=== PATIENT | female | born 1955 | race Caucasian/White ===

== ENCOUNTER 2016-10-13 16:09 | Emergency (ER) | payer OTHER ==
[~2016-10-13] VITALS: Wt 105.0 kg
[~2016-10-13 16:09] MED LIST: AFRIN NASAL; BACTDS PO; BENA10TA48 PO; GLIP5TAB13 PO; HYDR-3720 PO; METF500T4 PO; METR500T PO; NORC 5-325 PO; RANI150T5 PO
[2016-10-13] MEDS ORDERED: ONDANSETRON 4 MG INJ IV STA (19:33)
[2016-10-13] MEDS ORDERED: morphine 4 MG/ML VIAL IV STA (19:33)
[2016-10-13] MEDS ORDERED: SOD CHLORIDE 0.9% 1,000 ML IV STA (19:33)
--- NOTE | 2016-10-13 20:32 | ERD ---
ER Documentation Chief Complaint Date/Time DATE: 10/13/16 TIME: 20:29 Chief Complaint RIGHT FLANK PAIN RADIATING TO RIGHT SIDE ABD PAIN SINCE 0300. NAUSEA ONLY HPI 60-year-old woman presents with right lower abdominal and right flank pain since this morning with some nausea although she has had no vomiting or diarrhea. 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 She does have a history of multiple renal stones and did undergo shockwave lithotripsy on the right for a large stone a few months ago. She denies hematuria, no blood or mucus in her stools, no chest pain or shortness of breath, no headache or blurry vision, no fevers or chills, no recent antibiotic use or travel. Pain is been intermittent ROS All systems reviewed and are negative except as per history of present illness. Medications Home Meds Active Scripts Ondansetron Hcl* (Zofran*) 4 Mg Tablet, 4 MG PO Q8H Y for NAUSEA AND/OR VOMITING , #15 TAB Prov:SANDIP LIVINGSTON MD 10/13/16 Naproxen* (Naprosyn*) 500 Mg Tablet, 500 MG PO BID Y for PAIN AND/OR INFLAMMATION, #30 TAB Prov:SANDIP LIVINGSTON MD 10/13/16 Cephalexin* (Keflex*) 500 Mg Capsule, 500 MG PO TID for 5 Days, CAP Prov:SANDIP LIVINGSTON MD 10/13/16 Reported Medications Glipizide* (Glipizide*) Unknown Strength Tablet, PO AC BREAKFAST, TAB 11/11/15 Metformin* (Glucophage*) Unknown Strength Tab, PO BID, #30 TAB 11/11/15 Benazepril Hcl* (Benazepril Hcl*) 10 Mg Tablet, 10 MG PO DAILY, TAB PT REPORTED SIDE EFFECTS COUGH AND NAUSEA PT STOPPED TX 05/16/14 Discontinued Reported Medications Oxymetazoline Hcl* (Afrin Melber*) 1 Melber Melber, 2 SPRAY NASAL QID Y for NASAL CONGESTION, SPRAY TO EACH NOSTRIL 05/16/14 Ranitidine Hcl* (Ranitidine Hcl*) 150 Mg Tablet, 150 MG PO DAILY, TAB 05/16/14 Discontinued Scripts Sulfamethoxazole-Trimethoprim* (Bactrim* DS) 800-160 Mg Tab, 1 TAB PO BID for 10 Days, TAB Prov:MAY LEON. DO 11/11/15 Metronidazole* (Flagyl*) 500 Mg Tablet, 500 MG PO TID for 10 Days, TAB Prov:MAY LEON. DO 11/11/15 Hydrocodone Bit-Acetaminophen* ([place]*) 7.5-325 Tablet, 2 TAB PO Q4H Y for PAIN , #30 TAB Prov:KAUR LEONOLOLayne A. DO 11/11/15 Hydrocodone Bit-Acetaminophen* ([place]*) 5-325 Tablet, 1 TAB PO Q4H Y for PAIN LEVEL 6-10, #20 TAB Prov:HEATHER GIBBONS MD 05/18/14 Allergies Allergies: Coded Allergies: Iodinated Contrast Media - Oral and (Verified Allergy, Unknown, 10/13/16) ciprofloxacin (Verified Allergy, Unknown, 10/13/16) HIVES PMhx/Soc Hypertension, diabetes mellitus, gastritis, obesity, history of multiple renal stones and diverticulitis History of Surgery: Yes (KIDNEY STONES) Anesthesia Reaction: No Hx Neurological Disorder: No Hx Respiratory Disorders: No Hx Cardiac Disorders: Yes (HTN) Hx Psychiatric Problems: No Hx Miscellaneous Medical Probl: Yes (DM II) Hx Alcohol Use: No Hx Substance Use: No Hx Tobacco Use: Yes Smoking Status: Former smoker FmHx Family History: No diabetes Physical Exam Vitals Vital Signs Date Time Temp Pulse Resp B/P Pulse Ox O2 Delivery O2 Flow Rate FiO2 10/13/16 22:09 97.7 60 18 186/95 100 Room Air 10/13/16 16:40 98.5 64 20 193/102 96 Physical Exam GENERAL: Well-developed, well-nourished, well-hydrated, in no apparent distress , looks nontoxic in appearance HEENT: Moist mucous membranes, pink conjunctiva, no cervical spine tenderness or step-off deformities, no goiter, no jaundice or icterus, extraocular movements intact without pain. No submandibular induration, and no pharyngeal erythema NEURO: Alert and oriented 3, cranial nerves II through XII intact bilaterally, pupils equal round reactive to light, no focal deficits or facial asymmetry, sensation intact distally Strength 5/5 in upper and lower extremities bilaterally CARDIAC: Regular rate and rhythm, no murmurs rubs or gallops LUNGS: Clear bilaterally no wheezing crackles or stridor ABDOMEN: Soft nontender, no guarding, no rigidity, no rebound, no psoas sign no obturator sign. Normoactive bowel sounds SKIN: Warm and dry to touch, no abrasions, contusions, or hematomas, no lacerations, no ecchymosis, no target lesions, and without ulcers EXTREMITIES: No clubbing cyanosis or edema, calves are bilaterally symmetrical, no Homans sign, no popliteal cord sign. Distal pulses equal and bilateral PSYCH: Normal affect without agitation or irritability Result Diagram: 10/13/16210410/13/162104 Results 24 hrs Laboratory Tests Test 10/13/16 20:00 10/13/16 21:05 Urine Bacteria RARE Urine Bilirubin NEGATIVE Urine Clarity CLEAR Urine Color YELLOW Urine Glucose NEGATIVE% Urine Hemoglobin 3+ Urine Ketones TRACE Urine Leukocyte Esterase NEGATIVE Urine Microscopic RBC 25-50/HPF Urine Microscopic WBC NONE SEEN/HPF Urine Mucus FEW Urine Nitrite NEGATIVE Urine Specific [place] >=1.030 Urine Squamous Epithelial Cells RARE Urine Total Protein 2+ Urine Urobilinogen 0.2 E.U./dL Urine pH 5.0 Alanine Aminotransferase (ALT/SGPT) 161IU/L Albumin 4.0g/dl Albumin/Globulin Ratio 1.11 Alkaline Phosphatase 79IU/L Anion Gap 17 Aspartate Amino Transf (AST/SGOT) 97IU/L Basophils # 0.010^3/ul Basophils % 0.4% Blood Morphology Comment Blood Urea Nitrogen 10mg/dl Calcium Level 9.4mg/dl Carbon Dioxide Level 29mmol/L Chloride Level 103mmol/L Creatinine 0.63mg/dl Direct Bilirubin 0.00mg/dl Eosinophils # 0.110^3/ul Eosinophils % 1.7% Globulin 3.60g/dl Glucose Level 142mg/dl Hematocrit 43.6% Hemoglobin 14.9g/dl Indirect Bilirubin 0.6mg/dl Lipase 109U/L Lymphocytes # 3.010^3/ul Lymphocytes % 42.2% Mean Corpuscular Hemoglobin 36.7pg Mean Corpuscular Hemoglobin Concent 34.3g/dl Mean Corpuscular Volume 107.2fl Mean Platelet Volume 8.2fl Monocytes # 0.510^3/ul Monocytes % 7.7% Neutrophils # 3.410^3/ul Neutrophils % 48.0% Nucleated Red Blood Cells # 0.010^3/ul Nucleated Red Blood Cells % 0.0/100WBC Platelet Count 55594^3/UL Potassium Level 4.3mmol/L Red Blood Count 4.0710^6/ul Red Cell Distribution Width 13.4% Sodium Level 145mmol/L Total Bilirubin 0.6mg/dl Total Protein 7.6g/dl White Blood Count 7.110^3/ul Current Medications Medications (Trade) Dose Ordered Sig/Luly Route PRN Reason Start Time Stop Time Status Last Admin Dose Admin Sodium Chloride (NS) 1,000 ml @ 1,000 mls/hr Q1H STAT IV 10/13/16 19:33 10/13/16 20:32 DC 10/13/16 20:18 Morphine Sulfate (morphine) 4 mg ONCE STAT IV 10/13/16 19:33 10/13/16 19:34 DC 10/13/16 20:18 Ondansetron HCl (Zofran Inj) 4 mg ONCE STAT IV 10/13/16 19:33 10/13/16 19:34 DC 10/13/16 20:18 Procedures/MDM IV line was established patient was placed on monitor tech rhythm strip revealed a sinus rhythm at about 70 bpm with upright P and T waves. Patient was afebrile. I administered 1 L normal saline intravenously, morphine 4 mg IV, and Zofran 4 mg IV with good effect. CT scan of the abdomen and pelvis was performed, given the patient's symptoms. There was no acute inflammatory or infectious pathology noted, vascular structures were unremarkable. Please refer radiologist's dictation for full report. CBC and electrolytes were normal, liver function tests were normal, urine analysis was negative for infection. Differential diagnoses considered, included but not limited to acute coronary syndrome, pulmonary embolism, aortic dissection, abdominal aortic aneurysm, sepsis, stroke, meningitis, encephalitis, pneumonia, appendicitis, cholecystitis , bowel obstruction, pyelonephritis, nephrolithiasis, cystitis, as well as metabolic, hematologic, and electrolyte abnormalities. As well as abscess, cellulitis, fractures, and dislocations. Patient feels much better at this time, and vital signs are normal, symptoms have improved. I did give strict instructions to return to the ED if symptoms continue or worsen, patient will otherwise follow-up with primary care physician. Patient understood instructions and agreed to plan. Departure Diagnosis: Primary Impression: Kidney stone Condition: Good SANDIP LIVINGSTON MD Oct 13, 2016 20:31
[2016-10-13 20:39] LABS: ADD UMIC YES; URINE BILIRUBIN (Dip) NEGATIVE (NEGATIVE); URINE BLOOD (Dip) 3+ (NEGATIVE); URINE COLOR YELLOW (YELLOW); URINE GLUCOSE (Dip) NEGATIVE (NEGATIVE); URINE KETONES (Dip) TRACE (NEGATIVE); URINE LEUKOCYTE ESTERASE (Dip) NEGATIVE (NEGATIVE); URINE NITRITE (Dip) NEGATIVE (NEGATIVE); URINE TOTAL PROTEIN (Dip) 2+ (NEGATIVE); URINE UROBILINOGEN (Dip) 0.2 E.U./dL (0.1-1.0)
--- NOTE | 2016-10-13 20:57 | RADRPT ---
PROCEDURE: CT Abdomen and Pelvis without contrast CLINICAL INDICATION: Abdominal pain, right flank pain, history of kidney stones TECHNIQUE: Transaxial images were obtained through the abdomen and pelvis on a multi-slice scanner without the intravenous contrast administration. No oral contrast had previously been given. Sagit juju and coronal re-formations were subsequently reconstructed. One or more of the following dose reduction techniques were used: - Automated exposure control. - Adjustment of the mA and/or kV according to patient size. - Use of iterative reconstruction technique. Radiation dose: CTDIvol = 22.81 mGy; DLP = 1274.33 mGy-cm. COMPARISON: 11/11/2015 FINDINGS: Lung bases: Minimal discoid atelectasis is seen at the lung bases. Liver: The liver is mildly enlarged but no focal lesion identified. Gallbladder: The wall is not thickened. No radiopaque stones are identified. Bile ducts: The intra and extrahepatic bile ducts are normal in caliber. Pancreas: Appears normal with no mass or inflammation evident. Spleen: Normal in size with no focal lesion. Adrenals: Normal with no mass identified. Kidneys, ureters and bladder: The right kidney is somewhat smaller than the left and is slightly lob ulated in contour compatible with renal scarring. There is no hydronephrosis but multiple nephrolit hs are identified with the largest measuring 5 mm in diameter. The left kidney is normal in size. No mass or hydronephrosis is evident. Multiple nephroliths are identified but the largest measuring approximately 8 mm in diameter. The ureters are not dilated, but a 5.6 x 4.0 mm distal left uretero lith is seen at the left ureterovesicular junction. The bladder is suboptimally distended. Reproductive organs: The uterus is midline. There is a 9.4 mm cluster of calcifications in the left adnexal region possibly representing a dermoid. Stomach and bowel: The stomach appears unremarkable. There is no evidence of bowel obstruction or i nflammation. Multiple diverticuli are seen within the distal descending and sigmoid colon. Appendix: The vermiform appendix is not discretely identified. Peritoneum: No free intraperitoneal fluid or air is identified. Aorta: There is atherosclerotic vascular calcification but no abdominal aortic aneurysm is evident. IVC: Unremarkable. Lymph nodes: No pathologically enlarged nodes are identified. Osseous structures: Mild degenerative spine changes are again noted. There is again minimal depressi on of the anterior superior endplate of L1, unchanged. IMPRESSION: 1. The right kidney is somewhat smaller than the left and demonstrates mild cortical scarring. Mul tiple bilateral nonobstructing nephroliths are again evident but there is no evidence of urinary out flow obstruction. There is now a 5.6 x 4.0 mm distal left ureterolith at the left ureterovesicular junction which was not evident previously. The bladder is otherwise suboptimally distended but unrem arkable. 2. Persistent diverticulosis of the distal colon without evidence of bowel obstruction or inflammat ion. The vermiform appendix is not discretely identified. 3. A 9 mm focus of punctate clustered calcifications is again seen in the left adnexal region which may represent a small dermoid. 4. Persistent hepatomegaly with no focal lesion. 5. Minimal depression of the anterior superior endplate of L1 which may represent a mild compressio n fracture deformity, unchanged. Physician Estrella Date Time Electronically viewed and signed by Physician Estrella on 10/13/2016 20:57 RH/
[2016-10-13] MEDS ORDERED: ONDA4TAB8 PO (21:04)
[2016-10-13] MEDS ORDERED: NAPR-260 PO (21:04)
[2016-10-13] MEDS ORDERED: CEPH-443 PO (21:04)
[2016-10-13 21:08] LABS: BACTERIA,URINE RARE; MUCUS,URINE FEW; SQUAMOUS EPITHELIAL CELL,UR RARE; URINE RBCS 25-50 /HPF (0)
[2016-10-13 21:23] LABS: BASOPHILS % 0.4 % (0.0-2.0); EOSINOPHILS # 0.1 10^3/ul (0.0-0.5); EOSINOPHILS % 1.7 % (0.0-7.0); HEMATOCRIT 43.6 % (37.0-47.0); HEMOGLOBIN 14.9 g/dl (12.0-16.0); LYMPHOCYTES % 42.2 % (15.0-51.0); MEAN CORPUSCULAR HEMOGLOBIN 36.7 pg (29.0-33.0); MEAN CORPUSCULAR HGB CONC 34.3 g/dl (32.0-37.0); MEAN CORPUSCULAR VOLUME 107.2 fl (82.0-101.0); MEAN PLATELET VOLUME 8.2 fl (7.4-10.4); MONOCYTE # 0.5 10^3/ul (0.3-0.9); MONOCYTES % 7.7 % (0.0-11.0); NEUTROPHIL # 3.4 10^3/ul (1.6-7.5); PLATELET COUNT 187 10^3/UL (140-440); RED BLOOD COUNT 4.07 10^6/ul (4.20-5.40); RED CELL DISTRIBUTION WIDTH 13.4 % (11.5-14.5); UNCORRECTED WBC 7.1 10^3/ul (4.8-10.8); WHITE BLOOD COUNT 7.1 10^3/ul (4.8-10.8)
[2016-10-13 21:28] LABS: POTASSIUM 4.3 mmol/L (3.5-5.1)
[2016-10-13 21:30] LABS: ALBUMIN/GLOBULIN RATIO 1.11; BILIRUBIN,INDIRECT 0.6 mg/dl (0-1.1); BILIRUBIN,TOTAL 0.6 mg/dl (0.2-1.3); CALCIUM 9.4 mg/dl (8.4-10.2); CONDITION 1; CREATININE 0.63 mg/dl (0.44-1.00); LH ANALYZER COMMENTS 1; TOTAL PROTEIN 7.6 g/dl (6.1-8.1)
[2016-10-13 22:09] VITALS: BP 186/95; PULSE 60; RESP 18; TEMP 97.7
== END 2016-10-13 22:09 | disposition home or self-care (01) ==
LOC: E/R 16:09
DX: R10.31 Right lower quadrant pain (principal); R11.0 Nausea; E11.9 Type 2 diabetes mellitus without complications; I10 Essential (primary) hypertension; Z87.891 Personal history of nicotine dependence; Z79.84 Long term (current) use of oral hypoglycemic drugs
CPT/HCPCS: 74176; 80053; 81001; 83690; 85025; 96374; 96375; J2270; J2405; J7030; Z7502; 81003